=== PATIENT | female | born 2005 | race Caucasian/White ===

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

== ENCOUNTER 2023-07-08 08:20 | Day surgery (SDC) | payer OTHER ==
[2023-07-06 11:57] VITALS: BMI 25.3
[2023-07-08 09:08] VITALS: RESP 20; TEMP 97.5
[2023-07-08] MEDS: LACTATED RINGERS 1,000 ML IV SCH ×2 (09:08→09:32)
[2023-07-08] MEDS ORDERED: PROPOFOL 10 MG/ML 20 ML VIAL IV ONE (09:32)
[2023-07-08] MEDS ORDERED: MIDAZOLAM 2 MG/2 ML VIAL ONE (09:32)
--- NOTE | 2023-07-08 09:57 | P.PCN ---
Date of Procedure: 07/08/23 Procedure(s) Performed: Brief history: Patient is a pleasant 17-year-old white. scheduled for an elective upper endoscopy as well as colonoscopy as a part of evaluation of I deficiency anemia. Procedure performed: Esophagogastroduodenoscopy with biopsy Colonoscopy Preoperative diagnosis: Iron deficiency anemia Anesthesia: MAC Procedure: After informed consent was obtained from the patient was brought into the endoscopy unit and IV sedation was administered by anesthesia under continuous monitoring. Initially upper endoscopy was done. The Olympus GF 160 video endoscope was inserted inserted into the mouth and esophagus intubated without any difficulty and was gradually advanced into the stomach and duodenum and carefully examined. The bulb and second part of the duodenum had decreased mucosal folds with scalloping of the mucosa suspicious for celiac disease and multiple biopsies were done from this area. The scope was then withdrawn into the stomach adequately insufflated with air and upon careful examination the antrum had mild gastritis and biopsies were done from this area. Mucosa of the body, cardia and fundus appeared normal. The scope was then withdrawn into the esophagus. The GE junction was located at 40 cm to the incisors. It appeared regular with no erythema erosions or ulcerations. Rest of the esophagus appeared normal. Patient tolerated the procedure well. At this time the patient continued to remain sedation. Initial digital rectal examination was normal. Olympus CF 160 video colonoscope was then inserted into the rectum and gradually advanced to the cecum without any difficulty. Careful examination was performed as the scope was gradually being withdrawn. The prep was excellent. The cecum, ascending colon, transverse colon, descending colon, sigmoid colon and rectum appeared normal. Retroflexion was performed in the rectum and no lesions were noted. Patient tolerated the procedure well. Impression: 1. Upper endoscopy revealed mild duodenitis and scalloping of the mucosa suspicious for celiac disease status post multiple biopsies and mild antral gastritis 2. Colonoscopy was within normal limits with no evidence of colorectal neoplasia Recommendations: Findings of this examination were discussed with the patient as well as her family. She was advised to follow with the biopsy results. Continue with iron supplements and monitor CBC periodically. Obtain celiac panel today. Polyp in the office in 2 weeks prior.
[2023-07-08 10:30] VITALS: BP 100/63; PULSE 69
[2023-07-08 17:47] LABS: Gliadin AB IgA, Deaminated POSITIVE; Gliadin AB IgA, Unit 128.4 U/mL; Gliadin AB IgG, Deaminated POSITIVE; Gliadin AB IgG, Unit 72.8 U/mL
== END 2023-07-08 10:30 | disposition home or self-care (01) ==
LOC: ORWHC2ENDO 08:20
PROVIDERS: ATTEND Internal Medicine Gastroenterology
DX: K29.50 Unspecified chronic gastritis without bleeding (principal); K29.80 Duodenitis without bleeding; D50.9 Iron deficiency anemia, unspecified; J45.909 Unspecified asthma, uncomplicated; F41.9 Anxiety disorder, unspecified; Z79.899 Other long term (current) drug therapy
CPT/HCPCS: 81025; 88305; 84703; 83516 ×4; 45378; 43239; J2250; J2704

== ENCOUNTER → 2024-11-17 | Outpatient (CLI) | payer OTHER ==
[2024-11-19 13:10] LABS: Gliadin AB IgA, Deaminated Positive (Negative); Gliadin AB IgA, Unit 16.5 U/mL; Gliadin AB IgG, Deaminated Negative (Negative); Gliadin AB IgG, Unit 7.8 U/mL
== END | disposition home or self-care (01) ==
LOC: LABWHC1 09:25
PROVIDERS: ATTEND Internal Medicine Gastroenterology
DX: K90.0 Celiac disease (principal)
CPT/HCPCS: 36415; 83516